=== PATIENT | female | born 1980 | race Caucasian/White ===

== ENCOUNTER 2018-01-31 12:30 | Emergency (ER) | payer OTHER ==
[~2018-01-31] VITALS: Ht 175.3 cm; Wt 161.0 kg
== END 2018-01-31 15:27 | disposition home or self-care (01) ==
LOC: FSED 12:30
DX: R21 Rash and other nonspecific skin eruption (principal); T36.0X4A Poisoning by penicillins, undetermined, initial encounter
CPT/HCPCS: 99283